=== PATIENT | male | born 1975 | race African-American/Black ===

== ENCOUNTER 2025-07-02 08:35 | Inpatient (IN) | payer MEDICARE, MEDICAID ==
[~2025-07-02] VITALS: Ht 175.3 cm; Wt 82.1 kg
[~2025-07-02 08:35] MED LIST: ASPI81TA87 PO; LISI-893 PO; SIMV-260 PO
[2025-07-02 09:19] LABS: PLATELET COUNT (AUTO) 229 K/uL (150-450); RED BLOOD CELL COUNT(AUTO) 4.66 MIL/uL (4.50-5.90); RED CELL DISTRIBUTION WIDTH 13.4 % (11.5-14.5); WHITE BLOOD COUNT (AUTO) 9.6 K/uL (4.5-11.0)
[2025-07-02 09:29] LABS: CALCIUM, TOTAL 8.8 mg/dL (8.8-10.5); CREATININE 0.67 mg/dL (0.60-1.30); GLOMERULAR FILTR. RATE CALC > 60 mL/min (>60); GLUCOSE,RANDOM 119 mg/dL (70-110); SODIUM SERUM 135 mmol/L (136-145); UREA NITROGEN, BLOOD 9 mg/dL (7-18)
[2025-07-02 09:34] LABS: ASPARTATE AMINOTRANSFERASE 21 U/L (15-37); TOTAL PROTEIN, SERUM 7.6 g/dL (6.4-8.2)
[2025-07-02 09:36] LABS: TROPONIN I-HIGH SENSITIVITY 9 ng/L (<76)
[2025-07-02] MEDS: METOPROLOL TARTRATE 25 MG TABLET PO ONE (10:00)
[2025-07-02] MEDS: ASPIRIN 81 MG CHEWABLE TABLET PO ONE (10:01)
[2025-07-02] MEDS: ACETAMINOPHEN 325 MG TABLET PO ONE (16:22)
[2025-07-02 18:03] VITALS: BP 166/100; PULSE 79; RESP 18; TEMP 98.8; O2SAT 98
[2025-07-02 20:03] VITALS: BP 143/91; PULSE 72; RESP 17; TEMP 98.4; O2SAT 99
[2025-07-02] MEDS: ACETAMINOPHEN 325 MG TABLET PO PRN (22:39)
[2025-07-02 23:44] VITALS: BP 155/100; PULSE 75; RESP 19; TEMP 98.5; O2SAT 98
[2025-07-02] MEDS: OXYGEN THERAPY IH SCH (23:59)
[2025-07-03] VITALS (7 sets, daily range): BP systolic 133–157; BP diastolic 66–102; PULSE 82–92; RESP 18–20; TEMP 97.3–101.1; O2SAT 97–100
[2025-07-03 01:28] LABS: TROPONIN I-HIGH SENSITIVITY 10 ng/L (<76)
[2025-07-03 05:25] LABS: PH,URINE DRUG SCREEN 6.0 (5.0-8.0)
[2025-07-03 05:27] LABS: ALCOHOL, URINE DRUG SCREEN NEGATIVE (NEGATIVE); AMPHET/METH SCREEN,URINE POSITIVE (NEGATIVE); BARBITURATE SCREEN, URINE NEGATIVE (NEGATIVE); CANNABINOID SCREEN,URINE POSITIVE (NEGATIVE); COCAINE SCREEN,URINE NEGATIVE (NEGATIVE); METHADONE SCREEN, URINE NEGATIVE (NEGATIVE)
[2025-07-03] MEDS: HYDROCODONE/ACETAMINOPHEN 5-325 MG TABLET PO PRN (05:47)
[2025-07-03 07:17] LABS: PLATELET COUNT (AUTO) 199 K/uL (150-450); RED BLOOD CELL COUNT(AUTO) 4.95 MIL/uL (4.50-5.90); RED CELL DISTRIBUTION WIDTH 13.4 % (11.5-14.5); WHITE BLOOD COUNT (AUTO) 13.4 K/uL (4.5-11.0)
[2025-07-03 07:26] LABS: RBC MORPHOLOGY COMMENT NORMAL RBC MORPH
[2025-07-03 07:33] LABS: ASPARTATE AMINOTRANSFERASE 33 U/L (15-37); CALCIUM, TOTAL 8.9 mg/dL (8.8-10.5); CHOL/HDL RATIO 2.3 (4.2-7.3); CREATININE 0.81 mg/dL (0.60-1.30); GLOMERULAR FILTR. RATE CALC > 60 mL/min (>60); GLUCOSE,RANDOM 124 mg/dL (70-110); LDL CHOL (CALC.) 90 mg/dL (0-130); SODIUM SERUM 133 mmol/L (136-145); TOTAL PROTEIN, SERUM 7.1 g/dL (6.4-8.2); UREA NITROGEN, BLOOD 12 mg/dL (7-18)
[2025-07-03 07:38] LABS: TROPONIN I-HIGH SENSITIVITY 8 ng/L (<76)
[2025-07-03] MEDS: ENOXAPARIN SODIUM 40 MG/0.4 ML PF SYRINGE SQ SCH (08:15)
[2025-07-03] MEDS: PANTOPRAZOLE SODIUM 40 MG DR TABLET PO SCH (08:15)
[2025-07-03] MEDS: SIMVASTATIN 20 MG TABLET PO SCH (08:16)
[2025-07-03] MEDS: ASPIRIN 81 MG DR TABLET PO SCH (08:16)
[2025-07-03 16:27] LABS: TROPONIN I-HIGH SENSITIVITY 12 ng/L (<76)
[2025-07-04 01:01] VITALS: BP 162/88; PULSE 85; RESP 17; TEMP 100.4; O2SAT 99
[2025-07-04 05:10] VITALS: BP 159/88; PULSE 84; RESP 18; TEMP 99.1; O2SAT 98
[2025-07-04 08:23] VITALS: BP 148/88; PULSE 63; RESP 19; TEMP 98.2; O2SAT 99
[2025-07-04] MEDS ORDERED: SODIUM CHLORIDE 0.9% 500 ML IV ONE (08:23)
[2025-07-04] MEDS: CefTRIAXone 1 GM/DEXTROSE 50 ML IV SCH (08:40)
[2025-07-04 10:51] LABS: APPEARANCE,URINE CLEAR (CLEAR); GLUCOSE, URINE (UA) TRACE mg/dL (NEGATIVE); LEUKOCYTE ESTERASE ,URINE NEGATIVE (NEGATIVE); NITRATE,URINE NEGATIVE (NEGATIVE); OCCULT BLOOD,URINE MODERATE (NEGATIVE); SPECIFIC GRAVITIY, URINE 1.033 (1.003-1.030)
[2025-07-04 11:01] LABS: FINE GRANULAR CASTS,URINE 0-2 /LPF (None Seen); SULFOSALICYLIC ACID,URINE 2+ (Negative)
[2025-07-04 12:11] VITALS: BP 155/84; PULSE 70; RESP 20; TEMP 98.9; O2SAT 98
[2025-07-04] MEDS: ONDANSETRON HCL 4 MG/2 ML VIAL IVP PRN (15:35)
[2025-07-04 16:14] VITALS: BP 144/83; PULSE 90; RESP 16; TEMP 97.9; O2SAT 99
[2025-07-04] MEDS: LIDOCAINE 5% TRANSDERMAL PATCH TD SCH (17:45)
[2025-07-04 19:58] VITALS: BP 139/87; PULSE 65; RESP 18; TEMP 98.4; O2SAT 99
[2025-07-04] MEDS: -LIDODERM PATCH NOTE- MISC SCH (20:37)
[2025-07-05] VITALS: BP 136/91; PULSE 63; RESP 18; TEMP 98.2; O2SAT 99
[2025-07-05 04:00] VITALS: BP 149/91; PULSE 61; RESP 18; TEMP 97.5; O2SAT 98
[2025-07-05 06:54] LABS: ASPARTATE AMINOTRANSFERASE 78 U/L (15-37); CALCIUM, TOTAL 8.1 mg/dL (8.8-10.5); CREATININE 0.64 mg/dL (0.60-1.30); GLOMERULAR FILTR. RATE CALC > 60 mL/min (>60); GLUCOSE,RANDOM 172 mg/dL (70-110); SODIUM SERUM 130 mmol/L (136-145); TOTAL PROTEIN, SERUM 6.8 g/dL (6.4-8.2); UREA NITROGEN, BLOOD 16 mg/dL (7-18)
[2025-07-05 07:22] LABS: PLATELET COUNT (AUTO) 179 K/uL (150-450); RED BLOOD CELL COUNT(AUTO) 4.73 MIL/uL (4.50-5.90); RED CELL DISTRIBUTION WIDTH 13.2 % (11.5-14.5); WHITE BLOOD COUNT (AUTO) 10.0 K/uL (4.5-11.0)
[2025-07-05 07:56] VITALS: BP 145/90; PULSE 70; RESP 18; TEMP 98.6; O2SAT 99
[2025-07-05 11:17] VITALS: BP 151/84; PULSE 81; RESP 18; TEMP 98.5; O2SAT 100
[2025-07-05] MEDS: MAGNESIUM HYDROXIDE SUSPENSION 30 ML UDCUP PO PRN (15:39)
[2025-07-05] MEDS: VANCOMYCIN 1.5 GM/WATER(PEG) 300 ML IV ONE (15:40)
[2025-07-05 15:41] VITALS: BP 153/94; PULSE 76; RESP 19; TEMP 99.5; O2SAT 97
[2025-07-05 20:24] VITALS: BP 156/87; PULSE 69; RESP 19; TEMP 97.9; O2SAT 98
[2025-07-05] MEDS: VANCOMYCIN 1GM/WATER(PEG/NADA) 200 ML IV SCH (23:16)
[2025-07-06] VITALS (7 sets, daily range): BP systolic 11–157; BP diastolic 78–97; PULSE 65–80; RESP 18–20; TEMP 97.7–99.9; O2SAT 96–100
[2025-07-06 08:36] LABS: PLATELET COUNT (AUTO) 198 K/uL (150-450); RED BLOOD CELL COUNT(AUTO) 4.70 MIL/uL (4.50-5.90); RED CELL DISTRIBUTION WIDTH 13.5 % (11.5-14.5); WHITE BLOOD COUNT (AUTO) 8.2 K/uL (4.5-11.0)
[2025-07-06 09:05] LABS: CALCIUM, TOTAL 8.6 mg/dL (8.8-10.5); CREATININE 0.59 mg/dL (0.60-1.30); GLOMERULAR FILTR. RATE CALC > 60 mL/min (>60); GLUCOSE,RANDOM 130 mg/dL (70-110); SODIUM SERUM 129 mmol/L (136-145); UREA NITROGEN, BLOOD 14 mg/dL (7-18)
[2025-07-06] MEDS: LACTULOSE 20 GM/30 ML SOLUTION UDCUP PO ONE (14:50)
[2025-07-07] VITALS: BP 150/93; PULSE 66; RESP 18; TEMP 97.9; O2SAT 99
[2025-07-07 04:00] VITALS: BP 158/100; PULSE 74; RESP 18; TEMP 99; O2SAT 94
[2025-07-07 06:57] LABS: ASPARTATE AMINOTRANSFERASE 101 U/L (15-37); CALCIUM, TOTAL 8.3 mg/dL (8.8-10.5); CREATININE 0.75 mg/dL (0.60-1.30); GLOMERULAR FILTR. RATE CALC > 60 mL/min (>60); GLUCOSE,RANDOM 153 mg/dL (70-110); SODIUM SERUM 131 mmol/L (136-145); TOTAL PROTEIN, SERUM 6.3 g/dL (6.4-8.2); UREA NITROGEN, BLOOD 14 mg/dL (7-18)
[2025-07-07 07:40] LABS: PLATELET COUNT (AUTO) 225 K/uL (150-450); RED BLOOD CELL COUNT(AUTO) 4.64 MIL/uL (4.50-5.90); RED CELL DISTRIBUTION WIDTH 13.3 % (11.5-14.5); WHITE BLOOD COUNT (AUTO) 8.7 K/uL (4.5-11.0)
[2025-07-07 07:56] VITALS: BP 154/88; PULSE 72; RESP 19; TEMP 98.7; O2SAT 96
[2025-07-07 11:37] VITALS: BP 152/103; PULSE 71; RESP 18; TEMP 98.6; O2SAT 99
[2025-07-07 15:29] VITALS: BP 118/68; PULSE 89; RESP 19; TEMP 98.1; O2SAT 96
[2025-07-07] MEDS: VANCOMYCIN 1.5 GM/WATER(PEG) 300 ML IV SCH (15:34)
[2025-07-07 23:34] VITALS: BP 134/96; PULSE 83; RESP 18; TEMP 98.4; O2SAT 100
[2025-07-08] VITALS (7 sets, daily range): BP systolic 129–153; BP diastolic 82–98; PULSE 67–95; RESP 18–19; TEMP 97.5–98.7; O2SAT 96–100
[2025-07-08 06:56] LABS: PLATELET COUNT (AUTO) 258 K/uL (150-450); RED BLOOD CELL COUNT(AUTO) 4.64 MIL/uL (4.50-5.90); RED CELL DISTRIBUTION WIDTH 13.5 % (11.5-14.5); WHITE BLOOD COUNT (AUTO) 8.8 K/uL (4.5-11.0)
[2025-07-08 07:03] LABS: ASPARTATE AMINOTRANSFERASE 48 U/L (15-37); CALCIUM, TOTAL 8.4 mg/dL (8.8-10.5); CREATININE 0.73 mg/dL (0.60-1.30); GLOMERULAR FILTR. RATE CALC > 60 mL/min (>60); GLUCOSE,RANDOM 121 mg/dL (70-110); SODIUM SERUM 132 mmol/L (136-145); TOTAL PROTEIN, SERUM 6.6 g/dL (6.4-8.2); UREA NITROGEN, BLOOD 16 mg/dL (7-18)
[2025-07-09 04:00] VITALS: BP 152/92; PULSE 88; RESP 19; TEMP 97.7; O2SAT 96
[2025-07-09 06:03] LABS: PLATELET COUNT (AUTO) 325 K/uL (150-450); RED BLOOD CELL COUNT(AUTO) 4.61 MIL/uL (4.50-5.90); RED CELL DISTRIBUTION WIDTH 13.6 % (11.5-14.5); WHITE BLOOD COUNT (AUTO) 9.8 K/uL (4.5-11.0)
[2025-07-09 06:27] LABS: ASPARTATE AMINOTRANSFERASE 35 U/L (15-37); SODIUM SERUM 133 mmol/L (136-145); TOTAL PROTEIN, SERUM 6.8 g/dL (6.4-8.2)
[2025-07-09 06:42] LABS: CALCIUM, TOTAL 8.8 mg/dL (8.8-10.5); CREATININE 0.82 mg/dL (0.60-1.30); GLOMERULAR FILTR. RATE CALC > 60 mL/min (>60); GLUCOSE,RANDOM 115 mg/dL (70-110); UREA NITROGEN, BLOOD 20 mg/dL (7-18)
[2025-07-09 07:27] VITALS: BP 142/76; PULSE 75; RESP 18; TEMP 97; O2SAT 97
[2025-07-09] MEDS: VANCOMYCIN 1.25 GM/WATER(PEG) 250 ML IV SCH (09:15)
[2025-07-09 11:36] VITALS: BP 141/88; PULSE 75; RESP 18; TEMP 98.7; O2SAT 97
[2025-07-09 15:39] VITALS: BP 151/98; PULSE 76; RESP 18; TEMP 98; O2SAT 97
[2025-07-09 20:00] VITALS: BP 145/80; PULSE 80; RESP 20; TEMP 98.8; O2SAT 97
[2025-07-10] VITALS: BP 141/85; PULSE 77; RESP 20; TEMP 99; O2SAT 98
[2025-07-10 04:00] VITALS: BP 142/93; PULSE 77; RESP 20; TEMP 99; O2SAT 100
[2025-07-10 07:34] LABS: ASPARTATE AMINOTRANSFERASE 29 U/L (15-37); CALCIUM, TOTAL 8.6 mg/dL (8.8-10.5); CREATININE 0.68 mg/dL (0.60-1.30); GLOMERULAR FILTR. RATE CALC > 60 mL/min (>60); GLUCOSE,RANDOM 111 mg/dL (70-110); SODIUM SERUM 128 mmol/L (136-145); TOTAL PROTEIN, SERUM 6.7 g/dL (6.4-8.2); UREA NITROGEN, BLOOD 15 mg/dL (7-18)
[2025-07-10 08:00] VITALS: BP 149/86; PULSE 75; RESP 18; TEMP 98.5; O2SAT 99
[2025-07-10 11:28] VITALS: BP_SYST 119; BP_SYST 135; BP_DIAS 71; BP_DIAS 84; PULSE 74; PULSE 86; RESP 18; TEMP 98; TEMP 98.1; O2SAT 96; O2SAT 98
[2025-07-10 15:30] VITALS: BP 135/90; PULSE 76; RESP 19; TEMP 98; O2SAT 95
[2025-07-10 19:43] VITALS: BP 134/81; PULSE 91; RESP 19; TEMP 97.8; O2SAT 96
[2025-07-11 00:16] VITALS: BP 126/91; PULSE 84; RESP 18; TEMP 98.6; O2SAT 98
[2025-07-11 04:53] VITALS: BP 125/88; PULSE 98; RESP 18; TEMP 98.4; O2SAT 98
[2025-07-11 06:20] LABS: PLATELET COUNT (AUTO) 493 K/uL (150-450); RED BLOOD CELL COUNT(AUTO) 4.54 MIL/uL (4.50-5.90); RED CELL DISTRIBUTION WIDTH 13.4 % (11.5-14.5); WHITE BLOOD COUNT (AUTO) 7.8 K/uL (4.5-11.0)
[2025-07-11 07:28] VITALS: BP 134/87; PULSE 92; RESP 18; TEMP 97.5; O2SAT 98
[2025-07-11 07:34] LABS: CALCIUM, TOTAL 9.1 mg/dL (8.8-10.5); CREATININE 0.68 mg/dL (0.60-1.30); GLOMERULAR FILTR. RATE CALC > 60 mL/min (>60); GLUCOSE,RANDOM 114 mg/dL (70-110); SODIUM SERUM 133 mmol/L (136-145); UREA NITROGEN, BLOOD 19 mg/dL (7-18)
[2025-07-11] MEDS: VANCOMYCIN 1.5 GM/WATER(PEG) 300 ML IV SCH (09:04)
[2025-07-11 11:24] VITALS: BP 129/88; PULSE 77; RESP 18; TEMP 98; O2SAT 96
[2025-07-11 15:48] VITALS: BP 111/74; PULSE 91; RESP 18; TEMP 98.2; O2SAT 96
[2025-07-11 21:15] VITALS: BP 114/82; PULSE 92; RESP 18; TEMP 97.2; O2SAT 95
[2025-07-12 00:18] VITALS: BP 110/74; PULSE 87; RESP 19; TEMP 97.5; O2SAT 97
[2025-07-12 04:48] VITALS: BP 115/81; PULSE 84; RESP 20; TEMP 98.1; O2SAT 98
[2025-07-12 06:23] LABS: CALCIUM, TOTAL 9.2 mg/dL (8.8-10.5); CREATININE 0.74 mg/dL (0.60-1.30); GLOMERULAR FILTR. RATE CALC > 60 mL/min (>60); GLUCOSE,RANDOM 98 mg/dL (70-110); SODIUM SERUM 134 mmol/L (136-145); UREA NITROGEN, BLOOD 20 mg/dL (7-18)
[2025-07-12 08:24] VITALS: BP 111/82; PULSE 88; RESP 18; TEMP 98.1; O2SAT 98
[2025-07-12 12:00] VITALS: BP 110/84; PULSE 76; RESP 18; TEMP 97.6; O2SAT 98
[2025-07-12 15:53] VITALS: BP 102/67; PULSE 94; RESP 18; TEMP 97.5; O2SAT 96
[2025-07-12 20:00] VITALS: BP 98/61; PULSE 75; RESP 18; TEMP 98.2; O2SAT 100
[2025-07-13] VITALS (8 sets, daily range): BP systolic 97–124; BP diastolic 71–88; PULSE 86–106; RESP 18; TEMP 97.3–98.1; O2SAT 96–99
[2025-07-13 06:23] LABS: PLATELET COUNT (AUTO) 535 K/uL (150-450); RED BLOOD CELL COUNT(AUTO) 4.54 MIL/uL (4.50-5.90); RED CELL DISTRIBUTION WIDTH 13.5 % (11.5-14.5); WHITE BLOOD COUNT (AUTO) 7.8 K/uL (4.5-11.0)
[2025-07-13 06:53] LABS: ASPARTATE AMINOTRANSFERASE 35 U/L (15-37); CALCIUM, TOTAL 8.9 mg/dL (8.8-10.5); CREATININE 0.89 mg/dL (0.60-1.30); GLOMERULAR FILTR. RATE CALC > 60 mL/min (>60); GLUCOSE,RANDOM 99 mg/dL (70-110); SODIUM SERUM 136 mmol/L (136-145); TOTAL PROTEIN, SERUM 6.8 g/dL (6.4-8.2); UREA NITROGEN, BLOOD 25 mg/dL (7-18)
[2025-07-14 04:30] VITALS: BP 101/69; PULSE 78; RESP 18; TEMP 97.7; O2SAT 98
[2025-07-14 06:27] LABS: CALCIUM, TOTAL 8.8 mg/dL (8.8-10.5); CREATININE 0.83 mg/dL (0.60-1.30); GLOMERULAR FILTR. RATE CALC > 60 mL/min (>60); GLUCOSE,RANDOM 93 mg/dL (70-110); SODIUM SERUM 137 mmol/L (136-145); UREA NITROGEN, BLOOD 17 mg/dL (7-18)
[2025-07-14 07:29] VITALS: BP 106/73; PULSE 89; RESP 19; TEMP 97.9; O2SAT 99
[2025-07-14] MEDS ORDERED: VANCOMYCIN 1GM/WATER(PEG/NADA) 200 ML IV PRN (08:15)
[2025-07-14 11:20] VITALS: BP 125/84; PULSE 96; RESP 19; TEMP 98; O2SAT 98
[2025-07-14 15:40] VITALS: BP 119/90; PULSE 95; RESP 19; TEMP 97.8; O2SAT 98
[2025-07-14 19:38] VITALS: BP 125/91; PULSE 96; RESP 19; TEMP 97.9; O2SAT 99
== END 2025-07-14 20:46 | DRG 871 ==
LOC: EMS 08:35 → EDH 10:37 → 5S 17:59
PROVIDERS: ADMIT Family Medicine; ATTEND Family Medicine
PROC: 05HB33Z Insertion of Infusion Device into Right Basilic Vein, Percutaneous Approach (ICD-10-PCS; principal; 2025-07-11)
PROC: B54MZZA Ultrasonography of Right Upper Extremity Veins, Guidance (ICD-10-PCS; 2025-07-11)
DX: A41.02 Sepsis due to Methicillin resistant Staphylococcus aureus (principal); G92.8 Other toxic encephalopathy; E46 Unspecified protein-calorie malnutrition; R64 Cachexia; E22.2 Syndrome of inappropriate secretion of antidiuretic hormone; F79 Unspecified intellectual disabilities; I10 Essential (primary) hypertension; I51.7 Cardiomegaly; E78.00 Pure hypercholesterolemia, unspecified; F12.10 Cannabis abuse, uncomplicated; R62.7 Adult failure to thrive; E86.0 Dehydration; F15.10 Other stimulant abuse, uncomplicated; I48.91 Unspecified atrial fibrillation; Z82.49 Family history of ischemic heart disease and other diseases of the circulatory system; Z68.26 Body mass index [BMI] 26.0-26.9, adult; M94.0 Chondrocostal junction syndrome [Tietze]
CPT/HCPCS: 36245; 36569; 71045; 73218; 76937; 80048; 80053; 80061; 80202; 80307; 81001; 81002; 82150; 83036; 83690; 83735; 83880; 84484; 85025; 85610; 85730; 87040; 87077; 87186; 87205; 93005; 93306; 99285; J0360; J0696; J1650; J2405; J7040; 36415-L1; 36415-TC